=== PATIENT | male | born 1980 | race African-American/Black ===

== ENCOUNTER 2019-03-04 18:27 | Observation (INO) ==
[2019-03-04] MEDS ORDERED: MORPHINE IV ONE (19:01)
[2019-03-04] MEDS ORDERED: ROCEPHIN 1 GM in NS 50 ML IV ONE (19:11)
[2019-03-04 19:22] LABS: BASO# 0.02 X1000 (0.0-0.2); BASO% 0.1 % (0.0-0.8); EOS# 0.12 X1000 (0.0-0.7); EOS% 0.8 % (0.0-10.0); HEMOGLOBIN 14.5 g/dL (14.0-18.0); IMM GRAN# 0.03 X1000 (0.0-0.04); IMM GRAN% 0.2 % (0.0-0.5); LYMPH# 1.26 X1000 (1.2-3.4); LYMPH% 8.2 % (20.5-51.1); MCH 29.6 PG (27-31); MCHC 34.5 g/dL (33-37); MCV 85.7 FL (81-99); MONO# 1.21 X1000 (0.11-0.59); MONO% 7.9 % (1.7-9.3); NEUT# 12.76 X1000 (1.4-6.5); NEUT% 82.8 % (42.2-75.2); PLT 188 X1000 (130-400); RDW 14.2 % (11.5-14.5)
--- NOTE | 2019-03-04 19:30 | Diag Imaging Result Doc PS360 ---
EXAM: FOOT COMPLETE RIGHT HISTORY: foot pain, swelling, TTT, erythematous TECHNIQUE: Right foot, three views COMPARISON: None. FINDINGS: No fracture. No dislocation. No bone erosions. No subluxation. IMPRESSION: Negative exam. Electronically signed by Margarito Yoo 03/04/2019 7:28 PM
[2019-03-04 19:42] LABS: AGAP 12; ALB/GLOB RATIO 1.6; ALBUMIN 3.7 g/dL (3.5-5.0); ALKALINE PHOSPHATASE 59 U/L (32-122); BUN 12 mg/dL (8-22); CALCIUM 8.2 mg/dL (8.8-10.2); CHLORIDE 105 mmol/L (98-107); COSMO 283; ESTIMATED GFR > 60; GLUCOSE 128 mg/dL (70-104); GOT 31 U/L (10-34); GPT 31 U/L (10-44); POTASSIUM 3.8 mmol/L (3.5-5.1); SODIUM 141 mmol/L (136-145); TCO2 24 mmol/L (25-35); TOTAL BILIRUBIN 0.29 mg/dL (0.20-1.00)
[2019-03-04 20:24] LABS: SED RATE 0 mm/hr (0-15)
[2019-03-04] MEDS ORDERED: VANCOMYCIN IV PER PHARMACY MISC SCH (22:30)
[2019-03-04] MEDS ORDERED: LASIX PO ONE (22:54)
[2019-03-04] MEDS ORDERED: VANCOMYCIN 2,000 MG in NS 500 ML IV ONE (23:00)
[2019-03-04] MEDS ORDERED: NICODERM PATCH TD PRN (23:43)
[2019-03-04] MEDS ORDERED: ZOFRAN IV PRN (23:43)
[2019-03-04] MEDS ORDERED: TYLENOL PO PRN (23:43)
[2019-03-04] MEDS: NORCO-7.5 PO PRN (23:49)
[2019-03-05] MEDS: LOVENOX SUBQ SCH ×3 (00:05→22:09)
--- NOTE | 2019-03-05 00:41 | HISTORY AND PHYSICAL ---
CHIEF COMPLAINT: Right ankle and lower leg swelling. HISTORY OF PRESENT ILLNESS: This is a 38-year-old gentleman with history of hypertension and diabetes, although he is no longer on metformin. His primary care doctor took him off, who I believe was Rosy Caballero, said he did not need it anymore. That is what he reports. His sugar here is pretty well controlled. He has come in with pain in his right ankle, swelling on both sides, erythema and warmth. No fevers, subjective or otherwise. The patient does have a history of DVT, unfortunately. It looks like in 2016 he had a DVT in his right peroneal vein, for which he had been on treatment. Unclear what the etiology was of that. In any case, the patient came in. He had some pain. Workup in the ER showed a white count of 15,000. He had a D-dimer that was actually very normal, 0.3. The rest of his labs are really unremarkable. Plain films of his foot were unremarkable. He has had difficulty ambulating due to pain and discomfort. In any case, the patient is placed in observation for cellulitis of his right leg. PAST MEDICAL HISTORY: 1. Again, type 2 diabetes by report, although it appears diet-controlled. 2. Hypertension. He denies any cardiac issues, but he does have bilateral lower extremity edema. PAST SURGICAL HISTORY: Denies. FAMILY HISTORY: Positive for diabetes and hypertension. He did not really give me more details than that. SOCIAL HISTORY: No ethanol. He does smoke about a pack a day. I think he has done that for 20 years or so, but he has some intermittent bronchitis. No other major issues there. He works as a cook at the [employer]. ALLERGIES: Reports no known drug allergies. REVIEW OF SYSTEMS: No chest pain. No shortness of breath. No weight changes. No syncope. Other than that, negative 10-point review of systems. PHYSICAL EXAMINATION: VITAL SIGNS: Blood pressure 120/76, heart rate 91, respiratory rate of 24, temperature was 99.5 degrees. GENERAL: Well-developed male in no acute distress. HEENT: Head exam was normocephalic, atraumatic. Eye exam: Pupils equal, round and reactive to light. Extraocular movements were intact. Sclerae anicteric. Ear, nose and throat exam: He had moist mucous membranes. He did have somewhat swollen tonsils. NECK: Exam was supple. CARDIOVASCULAR: Exam was regular rate and rhythm. No murmurs, gallops or rubs. PULMONARY: Clear anteriorly. No rales. GASTROINTESTINAL: Soft, nontender, nondistended. Bowel sounds are positive. NEUROLOGICAL: Cranial nerves 2 through 12 were grossly intact. MUSCULOSKELETAL: Strength 5/5 in all 4 extremities. EXTREMITIES: On vascular/lymphatic exam, he had at least 1, possibly 2+ pitting edema, worse in his right leg than his left, but present in both legs, extending to probably the lower third of his legs bilaterally. His right foot seems swollen. It is erythematous, warm to the touch, warmer than his left foot. He did not have evidence of fissures or onychomycosis, or any open lesions. LABORATORY DATA: White count was 15,000, hemoglobin and hematocrit 14 and 42, platelets of 188,000. The rest of his labs looked okay. DIAGNOSTIC DATA: Plain films were negative. ASSESSMENT: This is a 38-year-old gentleman with history of hypertension, possible diet- controlled diabetes, who presents with pain and swelling in his right foot, ankle and lower extremity, most consistent with cellulitis, possibly associated with chronic renal/venous insufficiency. 1. Cellulitis of the foot, ankle and leg. I am going to continue vancomycin. He was dosed with Rocephin which is appropriate, but may not cover methicillin-resistant Staphylococcus aureus, and then consider treating accordingly. Despite his negative D-dimer, which I think is pretty good sensitivity specificity, I think I am going to go ahead and do a venous ultrasound. He has had a blood clot as recently as about 3 years ago, and we will continue deep venous thrombosis prophylaxis in the meantime. Keep leg elevated. 2. Hypertension. I do not have a list of his active medications, although he is supposed to be on lisinopril/hydrochlorothiazide. I have initiated some Lasix because he has issues on both sides. I will check a proBNP level and a TSH, because he may need workup for that, although this just could be plain chronic venous insufficiency. 3. Diabetes. We will continue to monitor. Reportedly, he is diet-controlled. His sugar so far is okay. We will continue to monitor and adjust the rest of the testing accordingly. 4. Disposition pending clinical status. If he is improved in the next 24 hours, anticipate discharge. cc: MD Rosy Peter CRNP
--- NOTE | 2019-03-05 00:55 | PROVIDER DOCUMENTATION ---
This chart was entered by Blanca Blandon Scribe, acting as scribe for Brittany Jones MD. HPI-Musculoskeletal Pain/Inj - GENERAL Chief Complaint: Edema Stated Complaint: EDEMA-LOWER EXTREMITIES, HURTS TO WALK Time Seen by Provider: 03/04/19 18:52 Source: patient - HX OF PRESENT ILLNESS-MUSKULOSKELTAL Nature of Presenting Problem: pt is a 38 yr old male presenting with pain, redness and swelling to right lower leg/ankle/foot, pt reports onset today, unable to bear weight on right today, pt denies any injury, reports hx of DVT Quality of Pain: reports: throbbing, tightness Severity in ED: severe Onset/Duration: this morning Timing: still present, getting worse Modifying Factors: improves with: movement (worsens pain). worse with: analgesics Any recent injury?: No Locality of Occurance: Home Similar Symptoms Previously?: No Recently seen or treated by another doctor?: No - LOWER EXTREMITY PAIN/INJURY Lower Extremities Pain: leg: right (distal lower leg), foot: right, ankle: right Context / Method of Injury: reports: unknown Associated Symptoms: reports: denies symptoms Review of Systems - Adult - REVIEW OF SYSTEMS - ADULT Constitutional: denies: chills, fever, fatique Cardiovascular: reports: edema. denies: chest pain, palpitations Respiratory: denies: dyspnea on exertion, shortness of breath Gastrointestinal: reports: no symptoms reported Genitourinary: reports: no symptoms reported Musculoskeletal: reports: other (rt foot pain especially upon walking). denies: back pain Integumentary: reports: see HPI Neurological: reports: no symptoms reported Endocrine: reports: other (Borderline DM) Hematologic/Lymphatic: reports: blood clots (DVT 2016) Past History - Adult - PAST MEDICAL HISTORY-ADULT Review of Records: reports: Old Records Reviewed, Nursing Assessment Review, Medications Reviewed, Social history reviewed & non-contributory. Major Childhood Illnesses: reports: denies history Cardiovascular: reports: blood clots, HTN Respiratory: reports: asthma Gastrointestinal: reports: GERD Obstetrical/Gynecological: reports: denies history Genitourinary: reports: denies history Musculoskeletal: reports: denies history Neurological: reports: denies history Psychiatric: reports: bipolar Endocrine/Immune: reports: Diabetes Other Conditions: reports: denies history - PRIOR SURGERIES/PROCEDURES Surgical/Procedure History: reports: none - IMMUNIZATION STATUS Childhood Immunizations: See Nurse Assessment Flu Vaccine: See Nurse Assessment - FAMILY HISTORY Family History: reviewed, not pertinent - SOCIAL HISTORY Smoking: cigarettes Provider spent 3-5 mins advising pt. on dangers of tobacco.: Discussed manners to quit use, and f/u contacts for add'l counseling. Substance Use: alcohol Alcohol Use Frequency: occasionally Physical Exam-Injury Related - Physical Exam-Injury Related Initial Vital Signs Reviewed: Yes General Appearance: alert, mild distress, obese Immobilization?: negative: backboard, C-collar Eyes: PERRL/EOMI Head, Ears, Nose, Mouth & Throat: normocephalic/atraumatic, moist mucous mem branes Neck: non-tender, full range of motion, supple, normal inspection Respiratory: chest non-tender, lungs clear, normal breath sounds Cardiovascular: normal peripheral pulses, regular rate, rhythm, no edema Chest/Breast: deferred Abdominal Exam: normal bowel sounds, non tender, soft Lymphatic: no adenopathy Back Exam: normal inspection, no CVA tenderness, no vertebral tenderness Extremity: erythema (right lower leg, ankle), inflammation, tenderness (marked tenderness medial ankle). negative: deformity Integumentary: normal color, warm/dry, contusion(s) (medial right lower leg) Neurologic: grossly normal Psych/Mental Status: normal mood/affect - Glascow Coma Score Mirna Total: 15 Progress - PLAN OF CARE/RESULTS Progress/Plan/Lab Results: Vital Signs - 8 hr 03/04/19 18:36 03/04/19 18:45 03/04/19 18:49 Temperature 99.5 F Pulse Rate 91 H 95 H Respiratory Rate 18 36 H Blood Pressure 113/73 126/75 O2 Sat by Pulse Oximetry 98 98 97 03/04/19 18:50 03/04/19 19:00 03/04/19 19:10 Temperature Pulse Rate 93 H 94 H 94 H Respiratory Rate 28 H 21 25 H Blood Pressure O2 Sat by Pulse Oximetry 97 96 96 03/04/19 19:20 03/04/19 19:30 03/04/19 19:40 Temperature Pulse Rate 85 93 H 97 H Respiratory Rate 21 34 H 30 H Blood Pressure O2 Sat by Pulse Oximetry 96 95 97 03/04/19 19:45 03/04/19 19:50 03/04/19 20:00 Temperature Pulse Rate 97 H 95 H 96 H Respiratory Rate 31 H 29 H 26 H Blood Pressure 119/75 O2 Sat by Pulse Oximetry 94 L 93 L 94 L 03/04/19 20:01 03/04/19 20:10 03/04/19 20:20 Temperature Pulse Rate 95 H 90 93 H Respiratory Rate 28 H 32 H 26 H Blood Pressure 132/75 O2 Sat by Pulse Oximetry 94 L 94 L 94 L 03/04/19 20:29 03/04/19 20:30 03/04/19 20:31 Temperature Pulse Rate 88 89 91 H Respiratory Rate 24 24 24 Blood Pressure 132/75 120/76 O2 Sat by Pulse Oximetry 95 95 94 L 03/04/19 20:32 03/04/19 20:40 03/04/19 20:50 Temperature Pulse Rate 90 89 88 Respiratory Rate 24 28 H 24 Blood Pressure O2 Sat by Pulse Oximetry 94 L 95 95 03/04/19 21:00 03/04/19 21:01 03/04/19 21:10 Temperature Pulse Rate 88 83 84 Respiratory Rate 21 21 22 Blood Pressure 114/78 O2 Sat by Pulse Oximetry 94 L 95 96 03/04/19 21:20 03/04/19 21:30 03/04/19 21:31 Temperature Pulse Rate 87 87 85 Respiratory Rate 21 23 22 Blood Pressure 116/74 O2 Sat by Pulse Oximetry 95 93 L 93 L 03/04/19 21:40 03/04/19 21:50 03/04/19 22:00 Temperature Pulse Rate 84 80 85 Respiratory Rate 22 23 21 Blood Pressure O2 Sat by Pulse Oximetry 93 L 94 L 93 L 03/04/19 22:01 03/04/19 22:10 03/04/19 22:20 Temperature Pulse Rate 86 79 81 Respiratory Rate 23 23 23 Blood Pressure 113/72 O2 Sat by Pulse Oximetry 93 L 95 94 L 03/04/19 22:30 03/04/19 22:31 03/04/19 22:40 Temperature Pulse Rate 85 83 78 Respiratory Rate 23 25 H 17 Blood Pressure 107/55 O2 Sat by Pulse Oximetry 93 L 94 L 96 03/04/19 22:50 03/04/19 22:59 03/04/19 23:00 Temperature Pulse Rate 85 Respiratory Rate 20 Blood Pressure 126/79 O2 Sat by Pulse Oximetry 96 94 L 94 L 03/04/19 23:01 03/04/19 23:10 03/04/19 23:20 Temperature Pulse Rate Respiratory Rate Blood Pressure 123/80 O2 Sat by Pulse Oximetry 93 L 96 98 03/04/19 23:30 03/04/19 23:31 Temperature Pulse Rate Respiratory Rate Blood Pressure 133/72 O2 Sat by Pulse Oximetry 97 94 L Laboratory Results - last 24 hr 03/04/19 03/04/19 03/04/19 18:58 18:58 18:58 WBC 15.40 H RBC 4.90 Hgb 14.5 Hct 42.0 MCV 85.7 MCH 29.6 MCHC 34.5 RDW Std Deviation 14.2 Plt Count 188 MPV 11.0 H Immature Gran % (Auto) 0.2 Neut % (Auto) 82.8 H Lymph % (Auto) 8.2 L Rowan % (Auto) 7.9 Eos % (Auto) 0.8 Baso % (Auto) 0.1 Immature Gran # (Auto) 0.03 Neut # (Auto) 12.76 H Lymph # (Auto) 1.26 Rowan # (Auto) 1.21 H Eos # (Auto) 0.12 Baso # (Auto) 0.02 ESR 0 D-Dimer, Quantitative 0.30 Sodium 141 Potassium 3.8 Chloride 105 Carbon Dioxide 24 L Anion Gap 12 BUN 12 Creatinine 1.0 Estimated GFR/1.73 m2 > 60 BUN/Creatinine Ratio 12 Glucose 128 H Calculated Osmolality 283 Calcium 8.2 L Total Bilirubin 0.29 AST 31 ALT 31 Alkaline Phosphatase 59 Total Protein 6.0 L Albumin 3.7 Globulin 2.3 Albumin/Globulin Ratio 1.6 Orders Category Date Time Status Admit - [facility] Routine AdmDCTranf 03/04/19 23:43 Active Activity - Up with Assistance ORDERED Care 03/04/19 23:43 Active Elevate affected extremity DIRECTED Care 03/04/19 23:43 Active FSBS/Accucheck Result ORDERED Care 03/04/19 22:59 Completed Intake and Output-Strict ORDERED Care 03/04/19 23:43 Active Vital Signs Order Q 8-HR ASSESS Care 03/04/19 23:43 Active Z-Document. for Tele Applied ORDERED Care 03/04/19 23:43 Active Heart Healthy Diet Diet 03/04/19 23:43 Active FOOT COMPLETE RIGHT [RAD] Stat Exams 03/04/19 19:02 Completed A1C HGB W EST AVG GLUCOSE [CHEM] Routine Lab 03/05/19 06:00 Ordered BLOOD CULTURE [BLDCUL] Stat Lab 03/04/19 19:31 Results CBC WITH DIFF [HEME] Routine Lab 03/05/19 06:00 Ordered CBC WITH ELECTRONIC DIFF [HEME] Stat Lab 03/04/19 18:58 Completed COMPREHENSIVE METABOLIC PANEL [CHEM] Routine Lab 03/05/19 06:00 Ordered COMPREHENSIVE METABOLIC PANEL [CHEM] Stat Lab 03/04/19 18:58 Completed D-DIMER [COAG] Stat Lab 03/04/19 18:58 Completed PRO B-NATRIURETIC PEPTIDE Routine Lab 03/05/19 06:00 Ordered SED RATE [HEME] Stat Lab 03/04/19 18:58 Completed TSH Routine Lab 03/05/19 06:00 Ordered Acetaminophen [Tylenol] Med 03/04/19 23:43 Active 650 mg PO Q6H PRN PRN CefTRIAXONE [Rocephin] 1 gm Med 03/04/19 19:11 Discontinued 0.9% Sodium Chloride Inj [Ns] 50 ml IV NOW Enoxaparin [Lovenox] Med 03/04/19 23:43 Active 40 mg SUBQ Q24H Furosemide [Lasix] Med 03/05/19 09:00 Active 20 mg PO DAILY Furosemide [Lasix] Med 03/04/19 22:54 Discontinued 20 mg PO NOW ONE Hydrocodone/APAP 7.5 mg/325 mg [Peyton-7.5] Med 03/04/19 23:43 Active 1 each PO Q4H PRN PRN Morphine Med 03/04/19 19:01 Discontinued 8 mg IV NOW ONE Nicotine Patch [Nicoderm Patch] Med 03/04/19 23:43 Active 21 mg TD DAILY PRN PRN Ondansetron [Zofran] Med 03/04/19 23:43 Active 4 mg IV Q4H PRN PRN Pharmacy Order [Vancomycin IV Per Pharmacy] Med 03/04/19 22:30 Active 1 each MISC DIRECTED Vancomycin 2,000 mg Med 03/04/19 23:00 Active 0.9% Sodium Chloride Inj [Ns] 500 ml IV ONCE Telemetry [OM.EQ] Routine Oth 03/04/19 23:43 Active Venous U/S Right Leg Routine Ther 03/04/19 23:43 Ordered Transfer/Admit Order [TRANSFER] Routine Transfer 03/04/19 22:27 Completed D-Dimer is (-), Pt Hx and PE compatible with cellulitis. discussed with Dr. Foster, he will order US to rule out DVT. pt care, assessment and plan discussed with Dr. Wisdom and he agree with the plan as documented. Result Diagrams: 03/04/19 18:58 03/04/19 18:58 - CONSULTS/PCP/HOSPITALIST Notification #1 *Consult/PCP/Hospitalist*: Dr Foster Time Discussed: 22:20 Reason/Comments: plan of care for pt care Consult Disposition: Admit (Hx, PE and pt care discussed, accepted.) Departure - Departure Date of Disposition Decision: 03/04/19 Time of Disposition Decision: 23:09 DIAGNOSIS: Cellulitis of right lower leg Disposition: ADMITTED INPATIENT 09 Certified Medical Emergency: Emergent Condition: Stable - Critical Care Note This patient required my direct & personal management of CC.: No Attestation - Physician/ KHRIS Attestation Patient care was provided by Advanced Practice Provider:: No The physician spent face to face time with patient:: Yes Advanced Practice Provider documentation review:: Supervising physician onsite and consulted in the evaluation and care of this patient. The physician did have a face to face encounter with the patient. This chart was documented by the indicated scribe, (Blanca Blandon, Livan) and accurately reflects the services I performed and decisions made by me, Brittany Jones MD, as attested by the provider's signature.
[2019-03-05] MEDS: NORCO-7.5 PO PRN ×4 (06:30→19:02)
[2019-03-05 06:39] LABS: HEMATOCRIT 41.3 % (42.0-52.0); HEMOGLOBIN 14.3 g/dL (14.0-18.0); MCH 29.7 PG (27-31); MCHC 34.6 g/dL (33-37); MCV 85.9 FL (81-99); MPV 11.2 FL (7.4-10.4); PLT 175 X1000 (130-400); RBC 4.81 XMIL (4.7-6.1); RDW 14.2 % (11.5-14.5); WBC 11.35 X1000 (4.8-10.8)
[2019-03-05 06:40] LABS: BASO# 0.01 X1000 (0.0-0.2); BASO% 0.1 % (0.0-0.8); EOS% 1.8 % (0.0-10.0); IMM GRAN# 0.03 X1000 (0.0-0.04); IMM GRAN% 0.3 % (0.0-0.5); LYMPH# 1.88 X1000 (1.2-3.4); LYMPH% 16.6 % (20.5-51.1); MONO# 1.44 X1000 (0.11-0.59); MONO% 12.7 % (1.7-9.3); NEUT# 7.79 X1000 (1.4-6.5); NEUT% 68.5 % (42.2-75.2)
[2019-03-05 07:18] LABS: AGAP 8; ALB/GLOB RATIO 1.5; ALBUMIN 3.5 g/dL (3.5-5.0); ALKALINE PHOSPHATASE 57 U/L (32-122); BUN 9 mg/dL (8-22); CALCIUM 8.2 mg/dL (8.8-10.2); CHLORIDE 108 mmol/L (98-107); COSMO 281; CREATININE 0.7 mg/dL (0.7-1.2); ESTIMATED GFR > 60; GLUCOSE 88 mg/dL (70-104); GOT 23 U/L (10-34); GPT 25 U/L (10-44); POTASSIUM 3.8 mmol/L (3.5-5.1); SODIUM 142 mmol/L (136-145); TCO2 26 mmol/L (25-35); TOTAL BILIRUBIN 0.45 mg/dL (0.20-1.00); TOTAL PROTEIN 5.8 g/dL (6.3-8.3)
[2019-03-05 07:24] LABS: HEMOGLOBIN A1C 5.1 % (4.8-6.0)
[2019-03-05] MEDS: LASIX PO SCH (09:40)
[2019-03-05] MEDS ORDERED: VANCOMYCIN 2,000 MG in NS 500 ML IV SCH (11:00)
[2019-03-05] MEDS: DIFLUCAN PO SCH (11:05)
[2019-03-05] MEDS: KEFZOL 1 GM/D5W 1 GM/50 ML IVPB IV SCH ×2 (11:06→18:22)
[2019-03-05] MEDS: BAZA ANTIFUNGAL CREAM TOP SCH ×2 (11:41→22:00)
--- NOTE | 2019-03-05 12:02 | PROGRESS NOTE ---
DATE: 03/05/2019 SUBJECTIVE: This morning Mr. Lopez refers to be doing a lot better. He thinks the swelling in the right lower medial aspect of the foot is getting a little better. OBJECTIVE: Vital Signs: Blood pressure is 138/90, pulse of 78, respirations 18, and temperature 97.5 degrees. Patient was saturating 95% on room air. General: Mr. Lopez is a 38-year-old gentleman. He was in bed in no distress. HEENT: Mucosa is pink and moist. Anicteric. Acyanotic. Neck: Supple. Chest: Clear to auscultation. Cardiovascular: Regular rate and rhythm. There were no murmurs. No rubs. No gallops. GI: Abdomen is soft, nontender. Bowel sounds present. WELDER PRODUCTION LINE ARC: Patient is awake, alert, and oriented. Extremities: Patient does have some old chronic changes in the lower extremity consistent of stasis dermatitis. There is obviously the medial part of the right foot, and is slightly warm and has erythematous changes on the overlying skin. It is tender. In between the toes on both feet, there is evidence of fungal infection. ASSESSMENT: 1. Cellulitis to the right foot. The patient is currently on vancomycin. He will also add Ancef for a regular strep skin pathogens. 2. Hypertension is controlled. 3. Morbid obesity with BMI of 34.7. Weight management is advised. 4. Tinea pedis. The patient has been started on fluconazole as well as miconazole cream. 5. Bilateral lower extremity stasis dermatitis. A Doppler ultrasound has been ordered. We will follow up accordingly. cc: Otoniel Benton MD
[2019-03-06] MEDS: KEFZOL 1 GM/D5W 1 GM/50 ML IVPB IV SCH (02:17)
[2019-03-06] MEDS ORDERED: VANCOMYCIN 2,000 MG in NS 500 ML IV SCH (06:00)
[2019-03-06 07:55] VITALS: BP 125/77
[2019-03-06] MEDS: BAZA ANTIFUNGAL CREAM TOP SCH (09:18)
[2019-03-06] MEDS: LASIX PO SCH (09:19)
[2019-03-06] MEDS: DIFLUCAN PO SCH (09:19)
--- NOTE | 2019-03-06 09:50 | Extremity Venous Study ---
PROCEDURE NAME: Venous U/S Right Leg - 03/04/2019 PROCEDURE: Right lower extremity venous ultrasound. DATE OF STUDY: 03/05/2019. BAKERY HELPER: Jesus Alberto. REQUESTING PHYSICIANS: Kristin. INDICATION: Swelling. FINDINGS: Deep and superficial veins of the right lower extremity were visualized along their course. All veins were compressible with forward flow and no evidence of intraluminal thrombus. There were enlarged lymph nodes in the right groin. SUMMARY: No deep or superficial venous thrombosis seen in the right lower extremity with nonspecific lymphadenopathy. RECOMMENDATION: Recommend correlation clinically. cc: MD Elpidio Haq MD
--- NOTE | 2019-03-07 09:16 | DISCHARGE SUMMARY ---
ADMISSION DATE: 03/04/2019 DISCHARGE DATE: 03/06/2019 DISPOSITION: Home. FOLLOWUP: With TRISTAN Barahona. CONSULTATIONS DURING THIS ADMISSION: None. IMAGING STUDIES OF SIGNIFICANCE: A foot x-ray was done which showed no fracture or dislocation. ADMISSION DIAGNOSES: 1. Cellulitis of the foot/ankle. 2. Hypertension. 3. Diabetes mellitus. DIAGNOSES AT THE TIME OF DISCHARGE: 1. Cellulitis to the right foot, improved. 2. Hypertension, controlled. 3. Morbid obesity with a body mass index of 44.7, with management advised. 4. Tinea pedis noted. 5. Bilateral lower extremity stasis dermatitis. DISCHARGE MEDICATIONS: 1. Lisinopril/hydrochlorothiazide 1 tablet daily. 2. Palo. 3. Ibuprofen. 4. Doxycycline 100 mg b.i.d. 5. Cephalexin 500 three times per day. 6. Fluconazole 100 mg p.o. daily. 7. Miconazole cream. PRESENTING COMPLAINT: Right ankle swelling. HISTORY OF PRESENT COMPLAINT: Mr. Lopez is a 38-year-old, gentleman who is known to have diabetes and hypertension. Came to the emergency department because of right ankle swelling. The patient was evaluated, was found to have cellulitis, and was admitted for further medical care. HOSPITAL COURSE: Mr. Lopez was admitted to the medical floor. Was adequately hydrated and was started on broad-spectrum IV antibiotics. Over the course of the hospital stay, his blood cultures came back 48 hours negative. His white cell count was trended down. He has been afebrile. He seems to be doing a lot better. The swelling in the foot has been going down on a daily basis. This morning, he refers to be feeling great. He denies any complaints. He has been tolerating his meals almost 100%. We think that Mr. Loepz is clinically stable to be discharged. He needs to be on the doxycycline and Keflex. He is also advised on management of the tinea pedis. All the discharge instructions have been discussed with him. He voiced understanding. Time spent for discharge is 37 minutes. cc: MD Rosy West CRNP
== END 2019-03-06 11:29 | disposition home or self-care (01) ==
LOC: ED 18:27 → EDIPHOLD 23:31 → INTOOBSV 23:31 → SUATTDRO 23:31 → 3N 03-05 07:39
PROVIDERS: ATTEND Internal Medicine
CPT/HCPCS: 73630; 80053; 82948; 83036; 83880; 84443; 84550; 85025; 85379; 85651; 87040; 93971; 96365; 96366; 96367; 96372; 96375; 99285; A9270; J0690; J0696; J1650; J2270; J2405; J3370; J7040; XXXXX

== ENCOUNTER 2019-03-14 21:57 | Inpatient (IN) ==
[2019-03-14] MEDS ORDERED: NS 1,000 ML IV ONE (22:29)
[2019-03-14] MEDS ORDERED: TORADOL IV ONE (22:29)
[2019-03-14] MEDS ORDERED: VANCOMYCIN 1 GM/NS 1 GM/250 ML IVPB IV SCH (22:30)
[2019-03-14 23:14] LABS: BASO# 0.05 X1000 (0.0-0.2); BASO% 0.6 % (0.0-0.8); EOS# 0.24 X1000 (0.0-0.7); HEMATOCRIT 40.5 % (42.0-52.0); IMM GRAN# 0.03 X1000 (0.0-0.04); IMM GRAN% 0.4 % (0.0-0.5); LYMPH# 2.59 X1000 (1.2-3.4); LYMPH% 32.2 % (20.5-51.1); MCH 29.8 PG (27-31); MCHC 34.6 g/dL (33-37); MCV 86.2 FL (81-99); MONO# 0.68 X1000 (0.11-0.59); MONO% 8.5 % (1.7-9.3); MPV 10.4 FL (7.4-10.4); NEUT# 4.45 X1000 (1.4-6.5); NEUT% 55.3 % (42.2-75.2); PLT 218 X1000 (130-400); RDW 13.8 % (11.5-14.5); WBC 8.04 X1000 (4.8-10.8)
[2019-03-14] MEDS ORDERED: ZOSYN 4.5 GM in NS 100 ML IV SCH (23:30)
[2019-03-14 23:34] LABS: AGAP 10; ALB/GLOB RATIO 1.3; ALBUMIN 3.5 g/dL (3.5-5.0); ALKALINE PHOSPHATASE 62 U/L (32-122); BUN 11 mg/dL (8-22); CHLORIDE 107 mmol/L (98-107); COSMO 282; CREATININE 0.8 mg/dL (0.7-1.2); ESTIMATED GFR > 60; GLUCOSE 93 mg/dL (70-104); GOT 21 U/L (10-34); GPT 33 U/L (10-44); POTASSIUM 4.3 mmol/L (3.5-5.1); SODIUM 142 mmol/L (136-145); TCO2 25 mmol/L (25-35); TOTAL BILIRUBIN < 0.15 mg/dL (0.20-1.00); TOTAL PROTEIN 6.2 g/dL (6.3-8.3)
--- NOTE | 2019-03-15 00:01 | PROVIDER DOCUMENTATION ---
This chart was entered by Adelia Mohr Scribe, acting as scribe for Paul Thao MD. HPI-Rash/Wound/ReCheck - General Chief Complaint: Extremity Pain Stated Complaint: (R) ANKLE SWOLLEN STILL Time Seen by Provider: 03/14/19 22:22 Source: patient Allergies/Adverse Reactions: Allergies Allergy/AdvReac Type Severity Reaction Status Date / Time No Known Allergies Allergy Verified 03/04/19 18:48 Home Medications: Home Medication List Medication Instructions Recorded Confirmed Last Taken Type Lisinopril/Hydrochlorothiazide 1 each PO DAILY 05/30/16 04/01/18 03/22/18 05:00 History [Lisinopril-Hctz 20-12.5 mg Tab] Cyclobenzaprine [Flexeril] 10 mg PO TID PRN #15 tab 04/01/18 Unknown Rx Hydrocodone/Acetaminophen [Amber 1 ea PO Q4-6H PRN PRN #14 tab 04/01/18 Unknown Rx 7.5-325 Tablet] Ibuprofen [Motrin] 800 mg PO Q8H PRN PRN #30 tab 04/01/18 Unknown Rx Brompheniramine/Pseudoephed/Dm 5 ml PO Q4-6H PRN PRN 7 Days #120 10/29/18 Unknown Rx [Bromfed Dm Cough Syrup] syrup NS Doxycycline 100 mg PO BID #14 tab 10/29/18 Unknown Rx Cetirizine [Zyrtec] 10 mg PO DAILY #20 tab 12/10/18 Unknown Rx D-Methorphan/P-Epd/Bpm [Bromfed Dm 5 ml PO Q4H PRN #120 ml 12/10/18 Unknown Rx Liquid] D-Methorphan/P-Epd/Bpm [Bromfed Dm 5 ml PO Q4H PRN #120 ml 01/02/19 Unknown Rx Liquid] Ibuprofen 800 mg PO TID PRN #30 tab 02/08/19 Unknown Rx Cephalexin 500 mg PO TID #21 tab 03/06/19 Unknown Rx Fluconazole [Diflucan] 100 mg PO DAILY #10 tab 03/06/19 Unknown Rx Miconazole 2% Cream [James 2 gm TOP BID #1 tube 03/06/19 Unknown Rx Antifungal Cream] - History of Present Illness-Dermatology Nature of Presenting Problem: 38yom presents to ED cc RLE generalized swelling and tenderness. Pt reports he was hospitalized on 03/04/19 for 2 days for cellulitis in RLE and then released on ABT and antifungals but pain, tenderness and swelling has not gotten better. Pt N/V/D. Pt has hx of DM, blood clots, HTN and GERD. Location: reports: lower extremity (right) Quality: reports: painful Severity: reports: moderate Onset/Duration: reports: other (2 weeks) Timing: reports: still present Context/Associated Symptoms: reports: edema (RLE), tender area (RLE) Locality of [place]: Home Similar Symptoms Previously?: Yes Recently seen or treated by another doctor?: Yes Review of Systems - Adult - REVIEW OF SYSTEMS - ADULT Constitutional: reports: see HPI. denies: chills, fever, fatique Eyes: reports: no symptoms reported Ears, Nose, Mouth & Throat: reports: no symptoms reported Cardiovascular: reports: no symptoms reported Respiratory: reports: no symptoms reported Gastrointestinal: denies: diarrhea, nausea, vomiting Genitourinary: reports: no symptoms reported Musculoskeletal: reports: see HPI, other (swelling, tenderness RLE). denies: back pain, neck pain Integumentary: reports: no symptoms reported Neurological: reports: no symptoms reported Psychiatric: reports: no symptoms reported Endocrine: reports: no symptoms reported Hematologic/Lymphatic: reports: no symptoms reported Allergic/Immunologic: reports: no symptoms reported All Other Systems: Reviewed and Negative Past History - Adult - PAST MEDICAL HISTORY-ADULT Review of Records: reports: Nursing Assessment Review, Medications Reviewed, Social history reviewed & non-contributory. Major Childhood Illnesses: reports: denies history Cardiovascular: reports: blood clots, HTN Respiratory: reports: asthma Gastrointestinal: reports: GERD Obstetrical/Gynecological: reports: denies history Genitourinary: reports: denies history Musculoskeletal: reports: denies history Neurological: reports: denies history Psychiatric: reports: bipolar Endocrine/Immune: reports: Diabetes Other Conditions: reports: denies history - PRIOR SURGERIES/PROCEDURES Surgical/Procedure History: reports: none - IMMUNIZATION STATUS Childhood Immunizations: See Nurse Assessment Flu Vaccine: See Nurse Assessment - FAMILY HISTORY Family History: reviewed, not pertinent Physical Exam-General - PHYSICAL EXAM-ADULT Initial Vital Signs Reviewed: Yes - CONSTITUTIONAL General Appearance: appears well, alert. negative: anxious, combative - EYES Eyes: PERRL/EOMI, pink conjunctivae. negative: photophobia - HEAD, EARS, NOSE, MOUTH & THROAT HENMT: moist mucous membranes, normal ENT inspection. negative: angioedema - NECK Neck: non-tender, full range of motion, supple, normal inspection. negative: Brudzinski's sign, carotid bruit - RESPIRATORY Respiratory: chest non-tender, lungs clear, normal breath sounds, no pleuratic chest pain, no respiratory distress, no accessory muscle use. negative: crackles, rales, rhonchi - CARDIOVASCULAR Cardiovascular: normal peripheral pulses, regular rate, rhythm, no edema, no gallop, no JVD, no murmur. negative: bradycardia, tachycardia - GASTROINTESTINAL (ABDOMEN) Abdominal Exam: normal bowel sounds, non tender, soft, no organomegaly. negative: rigid, rebound, tenderness - LYMPHATIC Lymphatic: no adenopathy. negative: striations - MUSCULOSKELETAL Back Exam: normal inspection. negative: swelling Extremity: pedal edema, swelling (RLE), tenderness (tenderness RLE). negative: deformity - SKIN Integumentary: normal turgor, warm (RLE). negative: diaphoresis, jaundice - NEUROLOGIC Neurologic: triage clinician II-XII nml as tested, grossly normal, no motor/sensory deficits. negative: facial droop, focal weakness - PSYCHIATRIC Psych/Mental Status: normal mood/affect, normal thought content, normal thought process, oriented x 3. negative: anxious Progress - PLAN OF CARE/RESULTS Progress/Plan/Lab Results: Vital Signs - 8 hr 03/14/19 22:03 Temperature 97.4 F L Pulse Rate 91 H Respiratory Rate 18 Blood Pressure 116/84 O2 Sat by Pulse Oximetry 97 Laboratory Results - last 24 hr 03/14/19 03/14/19 03/14/19 22:55 22:55 22:55 WBC 8.04 RBC 4.70 Hgb 14.0 Hct 40.5 L MCV 86.2 MCH 29.8 MCHC 34.6 RDW Std Deviation 13.8 Plt Count 218 MPV 10.4 Immature Gran % (Auto) 0.4 Neut % (Auto) 55.3 Lymph % (Auto) 32.2 Steele % (Auto) 8.5 Eos % (Auto) 3.0 Baso % (Auto) 0.6 Immature Gran # (Auto) 0.03 Neut # (Auto) 4.45 Lymph # (Auto) 2.59 Steele # (Auto) 0.68 H Eos # (Auto) 0.24 Baso # (Auto) 0.05 Sodium 142 Potassium 4.3 Chloride 107 Carbon Dioxide 25 Anion Gap 10 BUN 11 Creatinine 0.8 Estimated GFR/1.73 m2 > 60 BUN/Creatinine Ratio 14 Glucose 93 Calculated Osmolality 282 Calcium 9.0 Total Bilirubin < 0.15 L AST 21 ALT 33 Alkaline Phosphatase 62 Total Protein 6.2 L Albumin 3.5 Globulin 2.7 Albumin/Globulin Ratio 1.3 Plasma Lactate 0.8 Orders Category Date Time Status Saline Loc NOW Care 03/14/19 22:28 Active BLOOD CULTURE [BLDCUL] Stat Lab 03/14/19 23:00 Results CBC WITH ELECTRONIC DIFF [HEME] Stat Lab 03/14/19 22:55 Completed COMPREHENSIVE METABOLIC PANEL [CHEM] Stat Lab 03/14/19 22:55 Completed LACTATE, PLASMA [CHEM] Stat Lab 03/14/19 22:55 Completed 0.9% Sodium Chloride Inj [Ns] 1,000 ml Med 03/14/19 22:29 Discontinued IV 999 mls/hr Ketorolac [Toradol] Med 03/14/19 22:29 Discontinued 30 mg IV NOW ONE Piperacillin/Tazobactam [Zosyn] 4.5 gm Med 03/14/19 23:30 Active 0.9% Sodium Chloride Inj [Ns] 100 ml IV Q6H Vancomycin 1 gm/Ns Med 03/14/19 22:30 Active 1 gm in 250 ml IV Q12H Venous U/S Right Leg Stat Ther 03/14/19 22:29 Completed A/P: Worsening cellultis of Right lower leg, was DC [address] Coats accepted pt admission Result Diagrams: 03/14/19 22:55 03/14/19 22:55 Departure - Departure Date of Disposition Decision: 03/15/19 Time of Disposition Decision: 00:01 DIAGNOSIS: Cellulitis of right lower leg Disposition: HOME 01 Certified Medical Emergency: Emergent Condition: Stable Additional Freetext Instructions: We have examined and treated you today on an emergency basis only. This was not a substitute for, or an effort to provide, complete medical care. In most cases, you must let your doctor check you again. Tell your doctor about any new or lasting problems. We cannot recognize and treat all injuries or illnesses in one Emergency Department visit. If you had special tests, such as X-rays or CT scans, will be reviewed by radiologist and will call you if there are any new suggestions Follow up with primary care provider in 1 to 2 days if no improvement. If you do not have a primary care provider, you need to choose one as soon as possible. Take medicines as prescribed. Monitor for any side effects or adverse events from medications. If any side effect, adverse event or rash develops, or if you suspect any other adverse reaction to the medication, then discontinue the medication immediately and contact clinic /PCP or go to the nearest ER. Narcotic meds / sedative meds instruction - patent advised not to drive, operate any machinery or go into water after taking meds as it may impair mental ability to react to the situation in an appropriate manner. Continue other current medicines. Follow up with PCP within 24-48 hours, or s ooner if symptoms worsen or fail to improve. Patient / guardian verbalizes understanding of treatment plan, medication, and side effects and agrees with treatment plan. Patient leaves ER in stable condition and ambulatory state. Return to ER as needed. Discharge instructions reviewed verbally and given to patient in written form. Follow up with primary care provider. Referrals and Follow-Ups: Rosy Caballero CRNP [Primary Care Provider] - - Critical Care Note This patient required my direct & personal management of CC.: No Attestation - Physician/ KHRIS Attestation Patient care was provided by Advanced Practice Provider:: No The physician spent face to face time with patient:: Yes Advanced Practice Provider documentation review:: Supervising physician onsite and consulted in the evaluation and care of this patient. The physician did have a face to face encounter with the patient. This chart was documented by the indicated scribe, (Adelia Mohr Scribe) and accurately reflects the services I performed and decisions made by me, Paul Thao MD, as attested by the provider's signature.
--- NOTE | 2019-03-15 03:01 | HISTORY AND PHYSICAL ---
PRIMARY CARE PROVIDER: TRISTAN Barahona. CHIEF COMPLAINT: Right foot and ankle pain. HISTORY OF PRESENTING ILLNESS: A 38-year-old male with a history of hypertension, diabetes mellitus type 2 diet controlled who had presented to emergency department with 1-week history of having worsening right ankle and foot pain. The patient was admitted about a week ago and was treated for cellulitis and sent home with p.o. antibiotics. However, he states that did not improve and his leg was getting worsening pain and his foot was more swollen and tender. He was evaluated in the emergency department due to his presenting symptoms and it was thought that we will place him for observation for further evaluation and management. At the time of my examination, he denied any headache, fever, chills, chest pain, shortness of breath, hemoptysis, melena or weight changes but complained of right foot and ankle pain. PAST MEDICAL HISTORY: Includes hypertension, diabetes mellitus type 2, diet controlled. PAST SURGICAL HISTORY: None. ALLERGIES: No known drug allergies. CURRENT MEDICATIONS: Keflex 500 mg p.o. t.i.d., Flexeril 10 mg p.o. t.i.d., ibuprofen 800 mg p.o. t.i.d., lisinopril HCT 20/12.5 mg 1 p.o. daily. SOCIAL HISTORY: Admits to 15 pack/year history of smoking. Admits to social alcohol use. Denies any illicit drug use. FAMILY HISTORY: No history of coronary disease. REVIEW OF SYSTEMS: Fourteen point review of system as listed in HPI. Other systems negative. PHYSICAL EXAMINATION: GENERAL: Cooperative, friendly male. He is resting more comfortably now. VITAL SIGNS: Temperature 97.4 degrees, pulse 91, respiration 18, blood pressure 116/84. HEENT: Atraumatic, normocephalic. Extraocular movements intact. PERRLA. NECK: No masses. CHEST: Clear to auscultation. CARDIOVASCULAR: Regular rate and rhythm. S1, S2. ABDOMEN: Soft, positive bowel sounds. EXTREMITY: Right foot/ankle tenderness and erythema. NEUROLOGIC: Nonfocal. : No bladder distention. SKIN: Warm. LABORATORIES AND STUDIES: WBCs 8.04, hemoglobin 14.1, hematocrit 40.5, platelets 218,000. Sodium 142, potassium 4.3, chloride 107, CO2 25, BUN is 11, creatinine 0.8, glucose 93. ASSESSMENT: A 38-year-old male with a history of hypertension and diabetes mellitus type 2 who presented to emergency department with complaint of right foot and ankle tenderness and pain for the past week. He apparently was admitted a week ago and discharged with p.o. antibiotics for similar complaints. However ,he states that his foot never improved. He was evaluated in the ED and, due to his presenting symptoms, we will place him for observation for further evaluation and management. 1. Right foot/ankle cellulitis. 2. Diabetes mellitus type 2. 3. Hypertension. PLAN: 1. We will admit patient to medical floor with telemetry. 2. We will start patient on IV antibiotics. 3. Give him adequate pain control and analgesic. 4. Monitor blood glucose closely. 5. Monitor blood pressure. Resume antihypertensive agent. 6. We will continue to follow and reassess and make further recommendation based on patient's clinical course. cc: Eliu Coats MD MTDD
[2019-03-15] MEDS ORDERED: VANCOMYCIN IV PER PHARMACY MISC SCH (03:49)
[2019-03-15] MEDS: MOTRIN PO PRN ×3 (04:40→21:41)
[2019-03-15] MEDS: ROCEPHIN 1 GM in NS 50 ML IV SCH (04:40)
[2019-03-15] MEDS ORDERED: VANCOMYCIN 1 GM/NS 1 GM/250 ML IVPB IV ONE (05:30)
[2019-03-15] MEDS: PRINZIDE 20/12.5MG PO SCH (08:02)
[2019-03-15] MEDS: NICODERM PATCH TD SCH (10:44)
[2019-03-15 13:02] LABS: HEMOGLOBIN A1C 5.2 % (4.8-6.0)
[2019-03-15] MEDS: NORCO-5 PO PRN ×3 (14:48→23:14)
[2019-03-15] MEDS ORDERED: VANCOMYCIN 2,000 MG in NS 500 ML IV SCH (17:30)
[2019-03-15] MEDS: VANCOMYCIN 2,000 MG in NS 500 ML IV SCH (18:06)
[2019-03-16] MEDS: ROCEPHIN 1 GM in NS 50 ML IV SCH (02:57)
[2019-03-16 07:04] LABS: BASO# 0.01 X1000 (0.0-0.2); BASO% 0.2 % (0.0-0.8); EOS# 0.19 X1000 (0.0-0.7); HEMATOCRIT 40.5 % (42.0-52.0); LYMPH# 1.87 X1000 (1.2-3.4); LYMPH% 29.7 % (20.5-51.1); MCH 29.7 PG (27-31); MCHC 34.6 g/dL (33-37); MCV 85.8 FL (81-99); MONO# 0.52 X1000 (0.11-0.59); MONO% 8.3 % (1.7-9.3); MPV 10.5 FL (7.4-10.4); NEUT% 58.8 % (42.2-75.2); PLT 214 X1000 (130-400); RBC 4.72 XMIL (4.7-6.1); RDW 13.6 % (11.5-14.5); WBC 6.29 X1000 (4.8-10.8)
[2019-03-16 07:34] LABS: AGAP 8; BUN 8 mg/dL (8-22); CALCIUM 8.1 mg/dL (8.8-10.2); CHLORIDE 106 mmol/L (98-107); COSMO 277; CREATININE 0.8 mg/dL (0.7-1.2); ESTIMATED GFR > 60; GLUCOSE 80 mg/dL (70-104); POTASSIUM 4.3 mmol/L (3.5-5.1); SODIUM 140 mmol/L (136-145); TCO2 26 mmol/L (25-35)
[2019-03-16] MEDS: NORCO-5 PO PRN ×4 (07:47→23:31)
[2019-03-16] MEDS: NICODERM PATCH TD SCH (09:08)
[2019-03-16] MEDS: PRINZIDE 20/12.5MG PO SCH (09:08)
--- NOTE | 2019-03-16 10:26 | Diag Imaging Result Doc PS360 ---
EXAM: ANKLE COMPLETE RIGHT 03/16/2019 HISTORY: right ankle swelling TECHNIQUE: Right ankle three views COMMENT: There is soft tissue swelling particularly medially and anteriorly. There is no evidence of fracture or dislocation periosteal reaction or erosion. Compared to 03/04/2019 there was soft tissue swelling over the anterior ankle and dorsum of the foot previously. IMPRESSION: No acute bony abnormality. Electronically signed by Austin Freeman 03/16/2019 10:24 AM
--- NOTE | 2019-03-16 10:47 | ORTHOPAEDICS CONSULTATION ---
DATE: 03/16/2019 CHIEF COMPLAINT: Right ankle pain and swelling. HISTORY OF PRESENT ILLNESS: Mr. Lopez is a 38-year-old male with a history of diabetes mellitus type 2 and hypertension who is complaining of right ankle pain and swelling for the past 3 weeks. About 1 week ago, he presented to the emergency department and was admitted for cellulitis of his right ankle and was sent home on p.o. antibiotics which patient states he did take. He returned to the emergency department due to worsening right ankle pain and he was further admitted for further evaluation and treatment. He complains of pain at the medial ankle. He states he did have some pain into his medial foot but that has improved after the antibiotics. He complains of swelling as well in his right ankle. PAST MEDICAL HISTORY: See the admission history and physical. PAST SURGICAL HISTORY: See the admission history and physical. ALLERGIES: See the admission history and physical. MEDICATIONS: See the admission history and physical. REVIEW OF SYSTEMS: Positive for right ankle pain and swelling. All others negative. PHYSICAL EXAMINATION: General: This is a well developed, well nourished male. He is alert, oriented, and cooperative with the examination. He is in no acute distress. Vital Signs: Temperature is 97.5 degrees, his pulse is 71, his respiratory rate is 14, his blood pressure is 137/87, his oxygen saturation is 99% on room air. HEENT: Head is normocephalic, atraumatic. Neck: Supple. Respiratory: His breathing is nonlabored. Abdomen: Nondistended. Neurologic: Sensation of his right lower extremity is intact. Musculoskeletal: He has full passive and active range of motion of his right ankle without pain. He has tenderness over his right medial malleoli and also diffuse tenderness over is right medial ankle and medial foot. There is mild edema throughout the right ankle as well. IMAGING: X-rays of his right ankle reveals no bony abnormality. ASSESSMENT: Right ankle cellulitis. PLAN: We do not feel that he has septic arthritis at this time. We recommend continuing antibiotics for treatment of cellulitis. If his pain and swelling worsens or fails to improve, we can consider a MRI of his right ankle. We will monitor him for now. Dictated by KEYUR Haynes for Curtis Cao MD cc: KEYUR Haynes MD [facility] [place] [facility]
--- NOTE | 2019-03-16 11:13 | PROGRESS NOTE ---
DATE: 03/16/2019 SUBJECTIVE: Patient reports with antibiotic that he is receiving he is able to walk better with less swelling in the right ankle. Denies any fever or chills. OBJECTIVE: Vital Signs: Temperature 97.5 degrees, heart rate 71 respiratory rate 14, blood pressure 137/87, O2 saturation 99% on room air. General Examination: This is a 38-year-old male, lying in bed, in no acute distress. Cardiovascular: S1, S2 heard. No murmurs, gallops, or rubs. Regular rate and rhythm. Respiratory: Clear bilaterally to auscultation. No work of breathing or using accessory muscles. Abdomen: Soft. Nontender to palpation. Bowel sounds present. No organomegaly. Extremities: Right foot and ankle with tenderness and erythema. Peripheral pulses present in both legs. Neurological: Patient is alert and oriented x3. Moves 4 extremities. LABORATORY DATA: Reviewed. ASSESSMENT AND PLAN: 1. Right ankle and foot cellulitis. The patient is on vancomycin and ceftriaxone. Clinically, this patient is responding to antibiotics. In order to rule out any septic arthritis and for further evaluation and treatment, we have consulted Orthopedics. We will follow recommendations. 2. Diabetes mellitus, type 2. We will continue with sliding scale insulin and Accu-Cheks before meals and also at bedtime. 3. Hypertension. We will continue home medications. DISPOSITION: We will continue to monitor this patient closely, and we will follow recommendations from Orthopedics. cc: Tino Ramirez MD
[2019-03-16] MEDS: VANCOMYCIN 2,000 MG in NS 500 ML IV SCH (13:54)
--- NOTE | 2019-03-16 14:57 | Extremity Venous Study ---
PROCEDURE NAME: Venous U/S Right Leg - 03/14/2019 MEDICAL TECHNOLOGIST MICROBIOLOGY: Moshe. REQUESTING PHYSICIAN: Dr. Thao. INDICATION: Previous negative scan on 03/04/2019 with worsening edema. FINDINGS: Deep and superficial veins of the right lower extremity were visualized along their course. All vessels appeared compressible with forward flow and no intraluminal thrombus. There was nonspecific lymphadenopathy in the right groin. SUMMARY: No deep or superficial venous thrombus noted with prominent lymph nodes in the right groin. Would recommend correlation clinically. cc: Alberto James MD
[2019-03-17] MEDS: ROCEPHIN 1 GM in NS 50 ML IV SCH (04:00)
[2019-03-17] MEDS: VANCOMYCIN 2,000 MG in NS 500 ML IV SCH (05:28)
[2019-03-17] MEDS: NORCO-5 PO PRN ×3 (05:39→14:00)
[2019-03-17 07:08] LABS: BASO# 0.02 X1000 (0.0-0.2); BASO% 0.3 % (0.0-0.8); EOS# 0.26 X1000 (0.0-0.7); EOS% 3.4 % (0.0-10.0); HEMATOCRIT 41.9 % (42.0-52.0); HEMOGLOBIN 14.5 g/dL (14.0-18.0); IMM GRAN# 0.03 X1000 (0.0-0.04); IMM GRAN% 0.4 % (0.0-0.5); LYMPH# 2.03 X1000 (1.2-3.4); LYMPH% 26.9 % (20.5-51.1); MCH 29.5 PG (27-31); MCHC 34.6 g/dL (33-37); MCV 85.3 FL (81-99); MONO# 0.71 X1000 (0.11-0.59); MONO% 9.4 % (1.7-9.3); MPV 10.6 FL (7.4-10.4); NEUT# 4.49 X1000 (1.4-6.5); NEUT% 59.6 % (42.2-75.2); PLT 217 X1000 (130-400); RBC 4.91 XMIL (4.7-6.1); RDW 13.6 % (11.5-14.5); WBC 7.54 X1000 (4.8-10.8)
[2019-03-17 07:25] LABS: AGAP 12; BUN 9 mg/dL (8-22); CALCIUM 8.4 mg/dL (8.8-10.2); CHLORIDE 102 mmol/L (98-107); COSMO 275; CREATININE 0.8 mg/dL (0.7-1.2); ESTIMATED GFR > 60; GLUCOSE 107 mg/dL (70-104); POTASSIUM 4.1 mmol/L (3.5-5.1); SODIUM 138 mmol/L (136-145); TCO2 24 mmol/L (25-35)
[2019-03-17] MEDS: PRINZIDE 20/12.5MG PO SCH (09:30)
[2019-03-17] MEDS: NICODERM PATCH TD SCH (09:30)
[2019-03-17 14:43] VITALS: BP 134/97
--- NOTE | 2019-03-17 17:09 | ORTHOPAEDICS PROGRESS NOTE ---
DATE: 03/17/2019 SUBJECTIVE: Julio Lopez is a 38 -year-old male with cellulitis of his right leg. He states he is much improved. He does have less swelling and tenderness. His leg is otherwise neurovascularly intact. ASSESSMENT: Improving right leg cellulitis. PLAN: We will recommend continuing IV antibiotics. He can be discharged home on p.o. antibiotics once he defervesced per his family physician. cc: Curtis Cao MD
--- NOTE | 2019-03-18 12:44 | DISCHARGE SUMMARY ---
ADMISSION DATE: 03/15/2019 DISCHARGE DATE: 03/17/2019 CONSULTATIONS: Dr. Cao with Orthopedics. PERTINENT PROCEDURES: Ankle x-ray: No acute abnormality. DISCHARGE DIAGNOSES: 1. Right ankle and foot cellulitis. The patient has been on intravenous vancomycin and ceftriaxone. He has responded to antibiotics. He was evaluated by Orthopedics to rule out any septic arthritis, but Orthopedics did not feel that was the case, and recommended continuing antibiotics for treatment of his cellulitis, but if the swelling and pain worsened or failed to improve, then they would consider doing an MRI of his right ankle. He will be discharged home on oral Septra, and follow up with his [employer]ICAL ENGINEERING MANAGER, Rosy Caballero. 2. Diabetes mellitus type 2. Continue with home medications. 3. Hypertension. Continue with home medications. HOSPITAL COURSE: Briefly, Mr. Lopez is a 38-year-old male with a history of diabetes mellitus type 2 and hypertension, who was complaining of right ankle pain and swelling, ongoing for 3 weeks. He presented to the ED 1 week ago, was admitted for cellulitis of his right ankle, and then sent home with p.o. antibiotics that he did take. He returned back to the ED due to worsening right ankle pain, and was admitted again for further evaluation and treatment, and placed on two IV antibiotics. He underwent imaging that did not show anything acute. He was ruled out for septic arthritis by Orthopedics. They recommended to continue antibiotic treatment. Clinically, he has improved. If his pain and swelling worsens or returns, they might consider doing an MRI of his right ankle. As for now, they recommend to continue with p.o. antibiotics, and follow up with his PCP on an outpatient basis. VITAL SIGNS: At the time of discharge, temperature is 98.2 degrees, heart rate 73, respirations 18, blood pressure 134/97, O2 is 100% on room air. DISCHARGE DIET: Diabetic. DISCHARGE MEDICATIONS: 1. Lisinopril/hydrochlorothiazide 20/12.5 mg tablet 1 each p.o. daily. 2. James antifungal cream 2 grams topical b.i.d. 3. Cefuroxime 500 mg p.o. b.i.d. for 28 tablets. 4. Diflucan 100 mg p.o. daily. 5. Flexeril 10 mg p.o. b.i.d. p.r.n. 6. Meloxicam 50 mg p.o. daily. 7. Castile 7.5/325 one each p.o. every 6 hours p.r.n. for 14 tablets. However, I believe this is an old medication from 03/2018. 8. Castile 5 one tablet p.o. every 4 hours p.r.n. for 30 tablets. 9. Septra DS 1 tablet p.o. b.i.d. for 28 tablets. 10. Zyrtec 10 mg p.o. daily. FOLLOWUP: Mr. Lopez is being discharged home with p.o. antibiotics. He is to return to the ED or call 911 for any worsening of symptoms. He is to follow up with his PCP, Rosy Caballero, in the next 7 to 10 days. Dictated by TRISTAN Michelle for Tino Ramirez MD cc: MD Rosy Torres CRNP
== END 2019-03-17 16:51 | disposition home or self-care (01) | DRG 603 ==
LOC: ED 21:57 → SUATTDRO 03-15 01:58 → 4N 03-15 01:58 → OBSVTOIN 03-15 01:58 → INTOOBSV 03-15 01:58 → 4N 03-16 11:42
PROVIDERS: ATTEND Internal Medicine
CPT/HCPCS: 73610; 80048; 80053; 82948; 83036; 83605; 85025; 87040; 93971; 96365; 96366; 96367; 96375; 99284; A9270; J0696; J1885; J2543; J3370; J7030; J7040; XXXXX